=== PATIENT | male | born 1945 | race Caucasian/White ===

== ENCOUNTER 2016-11-13 13:34 | Outpatient (CLI) | payer MEDICARE, OTHER ==
[~2016-11-13] VITALS: Ht 175.3 cm; Wt 75.9 kg
[~2016-11-13 13:34] MED LIST: ACET325T40 PO; ALPR0.25 PO; Calcium Carbonate PO; DIL1I IV; DILT240C79 PO; FURO40TA4 PO; HYDR-3498 PO; HYDR-842 PO; MOR2I IV; MYL80 PO; NICO-524 TRANSDERM; NIT4 SL; PANT40TA4 PO; POTA-57 PO; TAMS-14 PO
[2016-11-13 13:45] VITALS: BP 155/69; PULSE 75; RESP 18; Ht 175.3 cm; Wt 75.9 kg
--- NOTE | 2016-11-13 16:52 | PN ---
Date/Time of Note Date/Time of Note DATE: 11/13/16 TIME: 16:38 Assessment/Plan Assessment/Plan Assessment/Plan [facility] Progress Note Date of Service: 11/13/16 Today's Impression & Plan: Overall stable and doing well. No indication for surgical intervention at this time. 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 Ileostomy site healing very well and no longer needs wound vac. With above assessment, I've recommended the following for today: 1. F/u with PCP 2. F/u with oncology 3. Multidisciplinary tumor board presentation, mainly for question of further treatment and surveillance interval Thank you again for your great care of this very pleasant patient and wonderful family. If there are any questions, please feel free to call me at [phone]. TOTAL VISIT TIME: 20 minutes of which more than half was spent in [id number] discussion with the patient, possibly including family, as well as coordination of care between multiple physicians and providers. Disclaimer: Inadvertent spelling or grammatical errors are likely due to EHR/ dictation software use and do not reflect on the overall quality of patient care. Updated Clinical Summary: The patient is a very pleasant 71-year-old gentleman, well known to me from Jul 2015, with past medical history significant for HTN, peptic ulcer disease and thyroidectomy and eye surgery in the past, who was admitted to [facility] through ED with signs and symptoms consistent with large bowel obstruction at the sigmoid colon concerning for malignancy. This diagnosis was supported by the clinical picture, physical examination, CT findings, and the almost 100 pound weight loss of patient has had for the last year. Colonoscopy on 08/22/2015 unfortunately showed most likely a malignant obstruction of the sigmoid colon. S /p lap KAT sigmoid colectomy 08/28/15 with clinical evidence of malignant stricture, but no obvious metastatic process. 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 K-jana and Braf negative. Abdominal and pelvic CT 08/31/2015 showed evidence for ileus. Transferred to ICU on 09/01/2015 due to tachyarrhythmias and PVCs and distended abdomen. CTA 09/01/15 showed no PE, but extensive free air in the abdomen and free fluid. Clinically worse with more abdominal distension, peritoneal signs, and more fluid in the abdomen ( comparing chest CTA 09/01/15 with abd/pelvis CT 08/31/15). Even though temp, WBC, lactic acid and hemodynamics were normal, we explored the patient to make sure we don't have a perforated bowel. S/p re-exploration and washout and wide drainage of abdominal cavity 09/02/15. Enterococcus (VRE) from abdominal cavity cultures 09/04/15. Drain change in color slightly in the pelvis 09/05/15 with WBC rise to 15, but clinically appeared better with decrease pain and overall felt improved. Due to increased abdominal pain and blood cell count rises to 18 , we performed a Gastrografin enema which demonstrated leakage at the anastomotic site. I therefore consented the patient along with family for reexploration, possible bowel resection, possible ostomy placement. S/p laparoscopic hand-assisted exploration with wide drainage of abdominal cavity, repair of anastomotic leak, diverting loop ileostomy placement, lysis of adhesions (45 minutes), and extensive abdominal lavage on 09/06/15. Transferred out of ICU to [facility] 09/08/15. Repeat CT 09/15/15 showed postoperative changes of ileostomy and partial sigmoidectomy. Right abdominal and left pelvic drains were in place, mild diffuse wall thickening of the small and large bowel. Differential included edema from hypoproteinemia, infectious enterocolitis, ischemia and inflammatory causes, small volume ascites, enhancement of the peritoneum, suspicious for peritonitis, atherosclerosis of the abdominal aorta. Antimicrobial coverage broadened again 09/16/15. Transfused with 2 units PRBC on 09/17/15. Nl WBC 09/20/15. Seen by me 10/03/2015 after which he was transferred to rehabilitation ([facility]) and then to acute rehabilitation early October 2015. Appeared to be significantly improved with increased strength, body mass, improved albumin and nutritional parameters, and overall prognosis; no longer has any further infectious issues intra- abdominally as seen on 11/06/2015. Last remaining drain discontinued at bedside . Attempts at outpatient colonoscopy failed due to multiple reasons, including patient issues, system issues and others. Overall the patient had remained stable and showed remarkable improvement after a very complicated mak with colon cancer and post operative complications. Examination of the rest of the colon was finally done (much difficulty from various sources to accomplish) and it showed that there were no other abnormalities, and for this reason we scheduled patient for takedown of his diverting loop ileostomy. S/p takedown of diverting loop ileostomy and repair of parastomal hernia without mesh (8 cm x 4 cm ostomy defect size) on 10/03/16. A -fib with RVR prompting tele transfer 10/08/16. SBO resolved without further intervention and d/c home 10/20/16. Comorbidity/PMHx List: 1. Emergency colon resection for malignancy and ensuing complications 2. Peptic ulcer disease 3. Thyroid problems 4. High difficulties 5. Thyroidectomy 6. Eye surgery 7. Right leg surgery 8. Hypertension Subjective: No major events or complaints since d/c home; reports feeling well; - vomiting; no sob or cp; + flatus; + BM; + activity Objective: Vitals: See below Exam: GENERAL: On exam, the patient was sitting in a chair and appeared to be comfortable and in no acute distress. ABDOMEN: Soft, non-tender and non-distended. Incisions are clean, dry and intact without any evidence of underlying erythema, edema, discharge, or hernia. Wound vac ss. Ileostomy site with 1 cm open skin and a very shallow cavity. There are no peritoneal signs or guarding. SKIN: Skin appears to be pink and feels warm to touch. NEUROLOGIC: Patient is awake, alert, and follows commands appropriately. Exam/Review of Systems Vital Signs Vitals Vital Signs Date Time Temp Pulse Resp B/P Pulse Ox O2 Delivery O2 Flow Rate FiO2 11/13/16 13:45 97.5 75 18 155/69 97 Room Air DEANGELO BARROSO M.D. Nov 13, 2016 16:51
== END 2016-11-13 16:46 | disposition home or self-care (01) ==
LOC: HPC 13:34
PROVIDERS: ATTEND Transplant Surgery
DX: C18.9 Malignant neoplasm of colon, unspecified (principal); K27.9 Peptic ulcer, site unspecified, unspecified as acute or chronic, without hemorrhage or perforation; E07.9 Disorder of thyroid, unspecified; E06.0 Acute thyroiditis; I10 Essential (primary) hypertension
CPT/HCPCS: G0463